=== PATIENT | male | born 1965 | race Caucasian/White ===

== ENCOUNTER 2017-05-14 15:26 | Emergency (ER) | payer OTHER ==
[~2017-05-14] VITALS: Ht 172.7 cm; Wt 81.6 kg
[2017-05-14 15:43] VITALS: BP 157/88
[2017-05-14] MEDS ORDERED: ONDA4TAB10 PO (16:23)
[2017-05-14] MEDS ORDERED: OXYC-323 PO (16:23)
--- NOTE | 2017-05-14 16:24 | PHYS DOC ---
Past Medical History Past Medical History: No Pertinent History Past Surgical History: No Surgical History Alcohol Use: None Drug Use: None Adult General Chief Complaint Chief Complaint: FOOT INJURY PAIN [facility] HPI Patient is a 51 year old male presenting to the emergency department via EMS from an urgent care for evaluation of a right calcaneal fracture. He shouldn't was standing on a 5 foot scaffolding and slipped off and landed on his feet but his right foot landed on a hammer handle. He denies any other pain including low back pain head neck chest abdomen or other extremity pain. His right foot is quite swollen but his compartments are soft and he has intact sensation and cap refill distally. Review of Systems Review of Systems Constitutional: Denies fever or chills [] Respiratory: Denies cough or shortness of breath [] Cardiovascular: No additional information not addressed in HPI [] GI: Denies abdominal pain, nausea, vomiting, bloody stools or diarrhea [] Musculoskeletal: Denies back pain. + Right foot and ankle joint pain [] Integument: Denies rash or skin lesions [] Neurologic: Denies headache, focal weakness or sensory changes [] Allergies Allergies Allergies Coded Allergies Type Severity Reaction Last Updated Verified No Known Drug Allergies 05/14/17 No Physical Exam Physical Exam Constitutional: Well developed, well nourished, no acute distress, non-toxic appearance. [] Neck: Normal range of motion, no tenderness, supple, no stridor. [] Cardiovascular:Heart rate regular rhythm, no murmur [] Lungs & Thorax: Bilateral breath sounds clear to auscultation [] Abdomen: Bowel sounds normal, soft, no tenderness, no masses, no pulsatile masses. [] Back: No tenderness, no CVA tenderness. [] Extremities: Right foot is quite swollen and bruised and tender but his compartments are soft. Less than 2 second cap refill in all toes and he has intact sensation in all toes. Neurologic: Alert and oriented X 3, normal motor function, normal sensory function, no focal deficits noted. [] Current Patient Data Vital Signs Vital Signs Date Time Temp Pulse Resp B/P (MAP) Pulse Ox O2 Delivery O2 Flow Rate FiO2 05/14/17 15:43 98.6 157/88 (111) 98.6 EKG EKG [] Radiology/Procedures Radiology/Procedures [] Course & Med Decision Making Course & Med Decision Making I spoke to Dr. alexander amador and he recommended CT and then having him splinted and follow-up in orthopedic clinic later this week. Commended elevating foot staying off of it and taking Percocet for pain. Patient aware and agreeable with plan for discharge and verbalized understanding of the need for short-term follow-up and strict ER return precautions discussed and clear worsening pain fevers vomiting or other general concerns. Dragon Disclaimer Dragon Disclaimer This electronic medical record was generated, in whole or in part, using a voice recognition dictation system. Departure Departure Impression: Primary Impression: Calcaneus fracture, right Disposition: HOME, SELF-CARE Condition: STABLE Referrals: MEDINA SMALL II, MD Patient Instructions: Calcaneal Fracture Additional Instructions: GO TO DR. SMALL'S OFFICE TOMORROW MORNING AT 10AM. TAKE THE PERCOCET FOR PAIN. MAKE SURE TO KEEP YOUR LEG ELEVATED. THANK YOU! Scripts Ondansetron (ZOFRAN ODT) 4 Mg Tab.rapdis 4 MG PO BID Y for NAUSEA/VOMITING, #10 TAB Prov: ANASTASIYA DE LEON DO 05/14/17 Oxycodone/Apap 5-325 (PERCOCET 5-325 MG TABLET) 1 Each Tablet 1 TAB PO PRN Q6HRS Y for PAIN, #30 TAB 0 Refills Prov: ANASTASIYA DE LEON DO 05/14/17 Problem Qualifiers Primary Impression: Calcaneus fracture, right Encounter type: initial encounter Calcaneus location: unspecified portion of calcaneus Fracture type: closed Fracture alignment: displaced Qualified Codes: S92.001A - Unspecified fracture of right calcaneus, initial encounter for closed fracture ANASTASIYA DE LEON DO May 14, 2017 16:23
--- NOTE | 2017-05-14 16:29 | RAD ---
Right lower extremity CT without contrast 05/14/2017 at 1558 hours Indication: Calcaneus fracture Comparison: None available Technique: Multiple axial CT images of the foot were obtained without intravenous contrast. Coronal and sagittal reformats are provided. Findings: Multi directional fractures involving the calcaneus with a dominant fracture line extending obliquely from the posterior body of the calcaneus inferiorly through the plantar surface of the calcaneus. The medial calcaneotalar articulation is preserved, although fracture line does extend into the sustentaculum rosas. There is an obliquely oriented fracture line extending through the superior cortex of the calcaneus into the sinus tarsi. Fracture lines extend anteriorly to the calcaneocuboid articulation. Fracture fragment is inferiorly directed towards the plantar fascia. Calcaneal cuboid joint space is maintained. The talus is intact. Talonavicular articulation is intact. Tarsal bones are intact. Metatarsals and phalanges are intact without evidence for fracture. The tibial plafond and and talar dome are intact. Distal tibia and fibula including the lateral and medial malleolus are intact. Insertion of the Achilles tendon appears normal. Tibialis posterior is grossly intact. Flexor digitorum longus appears to be intact. There is soft tissue swelling and subcutaneous edema superficial to the pronator brevis and longus tendons. CT is limited for evaluation of small ligaments and tendons. Impression: Multi directional comminuted fracture involving the calcaneus with significant associated soft tissue edema, as detailed above. PQRS Compliance Statement: One or more of the following individualized dose reduction techniques were utilized for this examination: 1. Automated exposure control 2. Adjustment of the mA and/or kV according to patient size 3. Use of iterative reconstruction technique
== END 2017-05-14 16:42 | disposition home or self-care (01) ==
LOC: ER 15:48
DX: S92.001A Unspecified fracture of right calcaneus, initial encounter for closed fracture (principal); W01.0XXA Fall on same level from slipping, tripping and stumbling without subsequent striking against object, initial encounter; Y93.89 Activity, other specified; Y99.8 Other external cause status; Y92.89 Other specified places as the place of occurrence of the external cause
CPT/HCPCS: 73700; 99284-25